=== PATIENT | male | born 1970 | race Caucasian/White ===

== ENCOUNTER → 2021-03-26 | Outpatient (CLI) | payer BC ==
[~2021-03-26] MED LIST: CIPRO500 MG PO; COLACE100 MG PO; CRESTOR 10 MG T10 MG GT; CRESTOR 10 MG T10 MG PO; DERMACINRX5000 UNI1 PO; FLAGYL500 MG PO; GLUCOPHAGE 500500 MG PO; METFORMIN HCL850 MG PO; NORCO 7.5-3251 EACH PO; ONE DAILY MEN'1 EAC1 PO; ZESTRIL2.5 MG PO
[2021-03-26 10:20] LABS: HEMOGLOBIN 15.5 gm/dl (14.0-17.5); RED BLOOD COUNT 5.32 M/UL (4.20-5.50); WHITE BLOOD COUNT 5.8 K/UL (4.5-11.0)
[2021-03-26 10:38] LABS: BUN/CREATININE RATIO 31 (0-10)
[2021-03-28 11:14] LABS: CREATININE, URINE 188.5 mg/dL (Not Estab.)
== END ==
LOC: LAB 09:35
PROVIDERS: Nurse Practitioner Family
DX: Z00.00 Encounter for general adult medical examination without abnormal findings (principal); E11.65 Type 2 diabetes mellitus with hyperglycemia; E78.5 Hyperlipidemia, unspecified; I10 Essential (primary) hypertension; N40.1 Benign prostatic hyperplasia with lower urinary tract symptoms; R53.83 Other fatigue
CPT/HCPCS: 36415; 80053; 80061; 82043; 82570; 82607; 83036; 84153; 84439; 84443; 85025

== ENCOUNTER 2021-09-11 12:50 | Emergency (ER) | payer BC ==
[~2021-09-11] VITALS: Ht 175.3 cm; Wt 83.9 kg
== END 2021-09-11 16:20 | disposition home or self-care (01) ==
LOC: ER1 12:50
DX: U07.1 COVID-19 (principal); Z23 Encounter for immunization; E11.9 Type 2 diabetes mellitus without complications; I10 Essential (primary) hypertension
CPT/HCPCS: 99283; M0243

== ENCOUNTER → 2022-05-21 | Outpatient (CLI) | payer BC ==
[2022-05-21 10:20] LABS: HEMOGLOBIN 14.9 gm/dl (14.0-17.5); RED BLOOD COUNT 5.21 M/UL (4.20-5.50); WHITE BLOOD COUNT 5.3 K/UL (4.5-11.0)
[2022-05-21 10:42] LABS: BUN/CREATININE RATIO 24 (0-10)
[2022-05-22 08:15] LABS: VITAMIN D, 25-HYDROXY 55.5 ng/mL (30.0-100.0)
[2022-05-22 11:15] LABS: SARS-COV-2 SEMI-QUANT TOTAL AB See Dilution U/mL (Negative<0.8); SARS-COV-2 SPIKE AB DILUTION 288 U/mL (Negative<0.8); SARS-COV-2 SPIKE AB INTERP Positive (.)
== END ==
LOC: LAB 09:46
PROVIDERS: Nurse Practitioner Family
DX: E78.5 Hyperlipidemia, unspecified (principal); E11.65 Type 2 diabetes mellitus with hyperglycemia; I10 Essential (primary) hypertension; R53.83 Other fatigue; M79.672 Pain in left foot
CPT/HCPCS: 36415; 80053; 80061; 82607; 83036; 84439; 84443; 84550; 85025